=== PATIENT | female | born 1945 | race Caucasian/White ===

== ENCOUNTER 2018-10-17 14:31 | Emergency (ER) | payer OTHER ==
[~2018-10-17] VITALS: Ht 162.6 cm; Wt 106.6 kg
[~2018-10-17 14:31] MED LIST: ACTOS 30 MG TAB30 MG PO; ACTOS 45 MG45 M1 PO; ACTOS15 MG PO; ALPRAZOLAM 0.0.25 M1 PO; ALPRAZOLAM 0.50.5 M1 PO; ALPRAZOLAM PO; AMANTADINE 100100 MG PO; AMANTADINE100 M1 PO; AMITIZA 24 MCG24 MC1 PO; AMITRIPTYLINE H50 M2 PO; AMITRIPTYLINE PO; ARICEPT 5 MG TAB5 MG PO; ATIVAN1 MG PO; BACTRIM DS TAB1 EACH PO; CATAPRES-TTS 10.1 MG PO; CIPROFLOXACIN500 M1 PO; CLEOCIN HCL300 MG PO; COLACE 100 MG100 MG PO; CYCLOBENZAPRINE5 MG PO; DEPAKOTE 250MG250 M1 PO; DILTIAZEM 24HR240 MG PO; DILTIAZEM ER240 M1 PO; DOXYCYCLIN25 MG/5 ML PO; ED-SPAZ0.125 MG PO; ENABLEX15 MG PO; ESTRACE1 MG PO; ESTRADIOL 1 MG T1 MG PO; FLONASE 0.05%50 MCG INH; GLUCOTROL5 MG PO; GLYCOLAX POWDER17 G1 PO; GOLYTELY4000 M1 GT; HCTZ PO; HYDROCHLOROTHIA25 M1 PO; HYDROXYZINE HCL25 M2 PO; KEPPRA 500 MG500 M1 PO; LASIX 40 MG TAB40 M1 PO; LEVAQUIN 500 M500 M2 PO; LEVOTHYROXIN0.112 M1 PO; LEVOXYL112 MCG PO; LORTAB 7.5/5001 TA3 PO; MECLIZINE 25 MG25 M1 PO; MELATONIN5 M1 PO; MIRALAX17 GM PO; MIRALAX255 GM PO; NABUMETONE 500500 M1 PO; NEURONTIN 300300 M1; NEXIUM40 MG PO; OXYCODONE HCL 55 MG PO; PRILOSEC 20 MG20 MG PO; PRILOSEC40 MG PO; PROZAC 20 MG20 M1 PO; RELAFEN500 MG PO; RESTORIL30 MG PO; ROCALTROL OR; ROXICODONE5 M1 PO; SEROQUEL 100 M100 M1 PO; SIMVASTATIN10 MG PO; SIMVASTATIN40 MG PO; SPIRONOLACT/HCT1 TA1 PO; SYMAX; SYNTHROID200 MCG PO; TIAZAC240 MG PO; TRICOR; TUMS PO; TYLENOL EXTRA500 MG PO; ZOLOFT100 MG PO; ZYPREXA 10 MG T10 MG PO
[2018-10-17] MEDS ORDERED: LEVAQUIN 500 M500 M2 PO (15:15)
[2018-10-17 15:24] LABS: HEMATOCRIT 34.5 % (37.0-47.0); HEMOGLOBIN 11.1 gm/dL (12.0-15.0); MCH 33.2 pg (26.0-34.0); MCHC 32.3 g/dL (28.0-37.0); MCV 102.6 fL (80.0-100.0); PLATELET COUNT 105 thou/uL (150-400); RBC 3.36 mil/uL (4.20-5.00); RDW 14.8 % (10.5-14.5); WBC 4.7 thou/uL (4.0-11.0)
[2018-10-17 15:34] LABS: ANION GAP 5 mmol/L (7-16); BUN 17 mg/dL (7-18); CALCIUM 8.6 mg/dL (8.5-10.1); CHLORIDE 104 mmol/L (98-107); CO2 28 mmol/L (21-32); CREATININE 1.2 mg/dL (0.6-1.0); GLUCOSE 95 mg/dL (74-106); POTASSIUM 5.3 mmol/L (3.5-5.1); SODIUM 137 mmol/L (136-145)
[2018-10-17 15:42] LABS: ALBUMIN 2.9 g/dL (3.4-5.0); MAGNESIUM 1.8 mg/dL (1.8-2.4); SGOT 23 U/L (15-37); SGPT 18 U/L (30-65); TOTAL BILIRUBIN 0.2 mg/dL (<0.1-1.0); TOTAL PROTEIN 6.9 g/dL (6.4-8.2); TROPONIN-I <0.06 ng/mL (<0.06)
[2018-10-17 15:52] LABS: ABSOLUTE NEUTROPHILS 3.1 thou/uL (1.4-8.2); ANISOCYTOSIS 1+; MACROCYTES 1+; METAMYELOCYTES 1 %
[2018-10-17] MEDS ORDERED: PREDNISONE 20 M20 MG PO (16:58)
[2018-10-17] MEDS ORDERED: KEFLEX500 M1 PO (16:58)
[2018-10-17 17:00] VITALS: BP 139/67
--- NOTE | 2018-10-18 07:59 | EKG ---
[address] [place] [address] [facility] [place] [address] ELECTROCARDIOGRAM REPORT Name: TATIANA MATOS Room #: DEP SHAWN Esparza#: [id number] Admission: 10/17/18 Attend Phys: Discharge: 10/17/18 Date of : 45 Report #: [id number] THIS REPORT FOR: //name// [facility] ED Test Date: 2018-10-17 Test Time: 14:45:50 Pat Name: TATIANA MATOS Department: Room: Gender: F [employer]inator: [place] : 1945 Requested By: Jamel Camejo Order Number: [id number] MD: Joseph Kohler Measurements Intervals [place] Rate: 81 P: 40 IN: 199 QRS: 11 QRSD: 100 T: 16 QT: 425 QTc: 494 Interpretive Statements Sinus rhythm Low voltage, precordial leads Compared to ECG 11/10/2015 05:12:57 Low QRS voltage now present Electronically Signed On 10-18-2018 7:59:43 [employer] by Joseph Kohler [email or web address] <ELECTRONICALLY SIGNED> By: Joseph Kohler MD 10/18/18 0759 1445 1445 Joseph Kohler MD /SEBASTIÁN
== END 2018-10-17 17:00 | disposition home or self-care (01) ==
LOC: ER 14:31
PROVIDERS: Emergency Medicine
DX: J40 Bronchitis, not specified as acute or chronic (principal); I12.9 Hypertensive chronic kidney disease with stage 1 through stage 4 chronic kidney disease, or unspecified chronic kidney disease; E11.22 Type 2 diabetes mellitus with diabetic chronic kidney disease; N18.9 Chronic kidney disease, unspecified; E11.40 Type 2 diabetes mellitus with diabetic neuropathy, unspecified; G47.00 Insomnia, unspecified; E89.0 Postprocedural hypothyroidism; Z96.653 Presence of artificial knee joint, bilateral; Z88.0 Allergy status to penicillin; Z88.5 Allergy status to narcotic agent; Z88.8 Allergy status to other drugs, medicaments and biological substances